=== PATIENT | male | born 1950 | race Caucasian/White ===

== ENCOUNTER 2016-07-05 11:15 | Emergency (ER) | payer OTHER ==
[~2016-07-05] VITALS: Ht 167.6 cm; Wt 117.1 kg
[2016-07-05 11:47] VITALS: BP 99/55; PULSE 81; RESP 16; TEMP 98; O2SAT 96
[2016-07-05] MEDS ORDERED: LISI-519 PO (11:54)
[2016-07-05] MEDS ORDERED: ALLO100T PO (11:54)
[2016-07-05] MEDS ORDERED: GLIP5TAB8 PO (11:54)
[2016-07-05] MEDS ORDERED: METF1000 PO (11:54)
[2016-07-05] MEDS ORDERED: TETANUS/DIPHTHERIA TOXOID ADULT 0.5 ML VIAL IM ONE (13:00)
[2016-07-05] MEDS ORDERED: KETOROLAC TROMETHAMINE 60 MG/2 ML (IM) VIAL IM ONE (13:00)
[2016-07-05] MEDS ORDERED: ORPHENADRINE INJ 60 MG/2 ML AMP IM ONE (13:00)
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
[2016-07-05] MEDS ORDERED: ROBA750T PO (14:13)
[2016-07-05] MEDS ORDERED: IBUP-232 PO (14:13)
[2016-07-05 14:25] VITALS: RESP 18
== END 2016-07-05 14:31 | disposition home or self-care (01) ==
LOC: PHEFT 11:15
DX: S80.11XA Contusion of right lower leg, initial encounter (principal); S29.011A Strain of muscle and tendon of front wall of thorax, initial encounter; S83.8X2A Sprain of other specified parts of left knee, initial encounter; V43.52XA Car driver injured in collision with other type car in traffic accident, initial encounter; Y93.89 Activity, other specified; Y92.410 Unspecified street and highway as the place of occurrence of the external cause
CPT/HCPCS: 71010; 73560; 73590; 90471; 90714; 96372; 99284; J1885; J2360

== ENCOUNTER 2017-11-15 07:48 | Day surgery (SDC) | payer MEDICARE ==
[~2017-11-15 07:48] MED LIST: ALLO100T PO; GLIP5TAB8 PO; IBUP-232 PO; LISI-519 PO; METF1000 PO; ROBA750T PO
[2017-11-15] MEDS ORDERED: HYDR-3288 PO (08:15)
[2017-11-15] MEDS ORDERED: ATOR20TA15 PO (08:15)
[2017-11-15] MEDS ORDERED: ALLO300T2 PO (08:15)
[2017-11-15] MEDS ORDERED: GLIP10TA6 PO (08:15)
--- NOTE | 2017-11-15 10:40 | CF ---
cc: Barbara Gibson MD DATE: 11/15/2017 INDICATIONS FOR PROCEDURE: The patient is having a loud murmur was a technically difficult transthoracic echocardiogram. PROCEDURE: Transesophageal echocardiogram. PROCEDURE: After obtaining informed consent, the patient was stable to the recovery area. Anesthesia Department took care of sedation. Transesophageal echocardiogram was performed and no complications. FINDINGS: Aortic valve well visualized, significantly calcified. Could not get pressure gradients across it. The half planimetry showed about 1.3 cm2 for valve area. No shunts, no vegetations. IMPRESSION: 1. Moderate aortic insufficiency. 2. Mild mitral insufficiency. 3. No shunts, no vegetations and no effusion. Barbara Gibson MD DANAY/SB , 10:20 AM , 10:39 AM
--- NOTE | 2017-11-15 15:27 | EKG ---
Date Performed: 11/15/2017 Time Performed: 08:32:34 PTAGE: 67 years EKG: Sinus rhythm with 1st degree A-V block. Lead(s) unsuitable for analysis: V1 Left anterior fascicular block Left v entricular hypertrophy Lateral ST-T changes are probably due to ventricular hypertrophy Abnormal ECG NO PREVIOUS TRACING DOCTOR: Shanti Crawley Interpretating Date/Time 11/15/2017 15:25:48
== END 2017-11-15 11:35 | disposition home or self-care (01) ==
LOC: HSDC 07:48 → HDIC 07:49 → HSDC 11:35
PROVIDERS: ATTEND Internal Medicine Cardiovascular Disease
DX: R01.1 Cardiac murmur, unspecified (principal); I35.1 Nonrheumatic aortic (valve) insufficiency; I34.0 Nonrheumatic mitral (valve) insufficiency; I25.119 Atherosclerotic heart disease of native coronary artery with unspecified angina pectoris; E10.9 Type 1 diabetes mellitus without complications; I10 Essential (primary) hypertension; E66.9 Obesity, unspecified
CPT/HCPCS: 93005; 93312; 93320; 93325

== ENCOUNTER 2017-12-05 09:45 | Day surgery (SDC) | payer MEDICARE ==
[~2017-12-05] VITALS: Ht 165.1 cm; Wt 116.9 kg
[~2017-12-05 09:45] MED LIST changes: -ALLO100T PO; +ALLO300T2 PO; +ATOR20TA15 PO; +GLIP10TA6 PO; -GLIP5TAB8 PO; +HYDR-3288 PO; -IBUP-232 PO; -ROBA750T PO
[2017-12-05] MEDS ORDERED: IOHEXOL 350 MG/ML 100 ML BTL (for Cath Lab) OTHER ONE (09:46)
[2017-12-05 10:29] VITALS: BP 166/86; PULSE 84; RESP 18; TEMP 97.6; O2SAT 97
[2017-12-05 10:45] LABS: AUTOMATED NEUTROPHIL # 3.4 TH/MM3 (1.8-7.7); BASOPHIL # 0.1 TH/MM3 (0-0.2); EOSINOPHIL # 0.2 TH/MM3 (0-0.4); EOSINOPHIL % 3.9 % (0.0-4.0); HEMATOCRIT 39.7 % (39.0-51.0); HEMOGLOBIN 13.2 GM/DL (13.0-17.0); LYMPH % 31.6 % (9.0-44.0); LYMPHOCYTE # 1.9 TH/MM3 (1.0-4.8); MEAN CELL VOLUME 84.1 FL (80.0-100.0); MEAN CORPUSCULAR HEMOGLOBIN 27.9 PG (27.0-34.0); MEAN CORPUSCULAR HGB CONC 33.2 % (32.0-36.0); MEAN PLATELET VOLUME 8.4 FL (7.0-11.0); MONO % 8.1 % (0.0-8.0); MONOCYTE # 0.5 TH/MM3 (0-0.9); NEUT % 55.4 % (16.0-70.0); PLATELET COUNT 225 TH/MM3 (150-450); RED BLOOD COUNT 4.73 MIL/MM3 (4.50-5.90); RED CELL DISTRIBUTION WIDTH 15.1 % (11.6-17.2); WHITE BLOOD COUNT 6.1 TH/MM3 (4.0-11.0)
[2017-12-05 10:57] LABS: PROTHROMBIN TIME - PATIENT 10.5 SEC (9.8-11.6)
[2017-12-05] MEDS ORDERED: NS 1000P @30 MLS/HR (KVO) IV SCH (11:00)
[2017-12-05 11:13] LABS: BICARBONATE 24.2 MEQ/L (21.0-32.0); CALCIUM 8.9 MG/DL (8.5-10.1); CREATININE 1.09 MG/DL (0.60-1.30)
[2017-12-05] MEDS ORDERED: HEPARIN-NS/PF INJ 500 ML ONE (12:07)
[2017-12-05] MEDS ORDERED: HEPARIN SODIUM - IV 10,000 UNITS/10 ML VIAL ONE (12:07)
[2017-12-05] MEDS ORDERED: MIDAZOLAM HCL 2 MG/2 ML VIAL ONE (12:07)
[2017-12-05] MEDS ORDERED: SODIUM CHLOR 0.9% 1000 ML INJ 400 ML IV ONE (13:15)
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
--- NOTE | 2017-12-05 13:26 | CATHPROC ---
[employer] HIS Report Study Information Study Number Admission Scheduled Start Study Start [id number] Dec 05 2017 9:45AM 12/05/2017 Dec 05 2017 11:36AM [place] [facility] Cardiac Catheterization Admit Source Facility Department Other [facility] - Press Washer Physician and Clinical Staff Initial Barbara Vargas Deputy Probation Officer Joy Dasilva RN Recorder Rajni Brink,RT(R) (BS) Scrub Debo Dimas,RT(R) TECH2 Procedures Performed Procedure Location (Site) Vessel Name Coronary Angiograms LCA Left Coronary Coronary Angiograms RCA Right Coronary LV Gram-hand inj. LV LV Ventricle Wire insertion Fem Art (right) Femoral Art Equipment Time Secondary Teacher Description Size Mfg Part Number Used/Scraped [id number] 11:51 MONCADA CHANDRA SWAN KADEN CATHETER FR 7 Used *[id number] TRANSDUCER, TRUWAVE [id number] 11:51 MONCADA CHANDRA * Used W/STOCKCOCK *[id number] TRANSDUCER, TRUWAVE [id number] 11:51 MONCADA CHANDRA * Used W/STOCKCOCK *[id number] WIRE, ZIP STRAIGHT GLIDE [id number] 12:40 [employer] 150CM Used 150CM *[id number] 12:53 [employer] MEDICAL VASCADE, FR6 CLOSURE SYSTEM FR 6\7 Used *[id number] [id number] *[id number] 534-620T *[id number] 534-621T *[id number] 11:51 [employer]ATHER [employer] SAVE BLANKET,WARM AIR CCL * Used *[id number] [id number] 11:51 [employer]ATHER [employer] SAVE PACK, CCL CUSTOM * Used *[id number] 11:51 [employer] PACER PEN, SKIN DUAL W/ RULER * Used *[id number] 11:51 [employer] MEDICAL SHEATH, FR6.5 PRELUDE 11CM FR 6.5 038ACT Used *[id number] [id number] 11:51 [employer] MED[employer] WIRE, 3MMJ .035 180CM 180CM Used *6743611 [id number] 12:47 [employer] MEDICAL WIRE, EXCHANGE 260CM 3MMJ 260CM Used *4687090 [id number] 12:44 [employer] MEDICAL WIRE, STRAIGHT TIP .035 * Used *6810985 [id number] 11:51 [employer] MANIFOLD, 2 PORT * Used *[id number] 11:51 [employer]OLD, 4 PORT * Used *[id number] 11:51 [employer] OMNIPAQUE, 350 MG, 150ML 150ML [id number] Used [id number] 11:51 [employer] MEDICAL SHEATH, FR7 TERUMO (10CM) FR 7 Used *[id number] 12:18 [employer] PIGTAIL DUAL LUMEN CATHETER FR 6 5527 *[id number] Used Equipment Model, Serial, Lot Number and Expiration Data Description Model Number Serial Number Lot Number Expiration Date WIRE, ZIP STRAIGHT GLIDE 150CM [id number] 10-10-2020 History: Allergies Allergy Reaction No Known Allergies History: Risk Factors Family History of Hypertension Dyslipidemia Previous [place] Previous Heart Failure Premature CAD Yes No No No No Prior Valve Prior PCI Prior CABG Surgery No No No Cerebrovascular Peripheral Artery Chronic Lung On Dialysis Diabetes Diabetes Therapy Disease Disease Disease No No No No Yes Oral History: Stress Tests Stress or Imaging Studies Performed Yes Standard Exercise Stress Test No Stress Echo No Stress Test SPECT Stress Test SPECT Result Yes Positive Stress Test CMR No Cardiac CTA Coronary Calcium Score No No History: Other Current Smoker No Labs Hgb (g/dl) Hct (%) WBC (l/cumm) Platelets (thousands) 11.60-17.00 35.00-51.00 4.00-11.00 150.00-450.00 13.0 39 6.1 225 Glucose (mg/dl) BUN (mg/dl) Creatinine (mg/dl) BUN:Creatinine (1:x) 74.00-106.00 7.00-18.00 0.50-1.30 10.00-20.00 118 21 1.0 21 Na (meq/l) K (meq/l) 136.00-145.00 3.50-5.10 140 4.3 INR (PTT:PT) 0.90-1.10 1 CPK-MB (ng/ML) 0.50-3.60 Not Drawn Medication Medication Total Dose (Bolus/Oral) Medication Total Dosage/Unit 1% XYLOCAINE 20 mL VERSED 2 mg Medications (Bolus/Oral) Medication Time Given Dosage/Unit Administered By Reason VERSED 12/05/2017 12:13:25 PM 1 mg Joy Dasilva 1 mg VERSED given in lab by Joy Dasilva, RN in Left Antecubital via Peripheral IV. 1% XYLOCAINE 12/05/2017 12:23:01 PM 20 mL Barbara Gibson 20 mL 1% XYLOCAINE given in lab by Barbara Gibson in Right Groin via Subcutaneous. VERSED 12/05/2017 12:23:17 PM 1 mg Joy Dasilva 1 mg VERSED given in lab by Joy Dasilva RN in Left Antecubital via Peripheral IV. Medication (Drip) Medication Time Given Dosage/Unit Concentration/Unit Diluent (ml) Solution IV Solutions 12/05/2017 12:04:30 PM 0 mL (IV) 500 NaCl .9 IV Solutions given in lab by Joy Dasilva RN in Left Antecubital via Peripheral IV. Pump/Drip Fl ow = 30 ml/hr using NaCl .9. Initial Case Assessment Cardiovascular HR Rhythm NIBP Chest Pain 73 reg 150/81 0 Edema Present Skin color Skin None Normal Warm Dry Circulatory - Right Pulses Dorsalis Pedis Femoral 2 1 Scale (0,1,2,3,4,d) Circulatory - Left Pulses Dorsalis Pedis Femoral 2 1 Scale (0,1,2,3,4,d) Circulatory - Lower Extremities Color Lower Right Color Lower Left Normal Normal Neurological State Oriented to time-place- Alert Moves all extremities person Respiration - General Respiration Rate SpO2 (%) (B/min) 13 97 Chronological Log Time Study Chronological Log 12:02:51 Patient arrived via Bed. 12:02:52 Patient Name, D.O.B, / Armband Verified By R.N. 12:02:53 Consent signed by the physician and the patient and verified by the Press Washer staff. Vitals capture started with the following parameters, Patient=Adult, Interval=5 min, Initial Pr hnlbdm=198 mmHg, 12:02:59 Deflation Rate=5 mmHg, Cuff placed on Right Ankle 12:04:10 Pre-op and post- op instructions given; patient acknowledges understanding of instructions. 12:04:11 Verbal Stimulation=2 Physical Stimulation=2 Airway=2 Respiration=2 TOTAL=8. (0=absent, 1=li mited, 2=present) 12:04:12 Presedation assessment performed by Press Washer RN. 12:04:23 Patient has been NPO for More than 6Hrs. 12:04:24 Skin Breakdown none per pt 12:04:27 Patient Warmer Placed on the Table. 12:04:29 Ava Prominences Protected 12:04:30 A # 20 IV was noted in the Antecubital (left). Grade = 0 IV Solutions given in lab by Joy Dasilva, GONZÁLEZ in Left Antecubital via Peripheral IV. Pump/D rip Flow = 30 ml/hr 12:04:30 using NaCl .9. 12:04:33 History and physical on the chart or being dictated. Assessment: Initial Case, HR=73 BPM, Rhythm=reg, GWNZ=996/81 mmhg, Chest Pain=0, Edema=None, Co armando=Normal, Skin = Warm, Dry Right Pulses: Bal Ped=2, Femoral=1 Left Pulses: Bal Ped=2, Femoral=1 12:04:34 Lower Right Extremities: Color=Normal Lower Left Extremities: Color=Normal Neurological: State=Alert, Ox3, VASQUEZ Respiration: Resp=13 B/min, SpO2=97 % 12:04:58 HR=89 bpm, XXYN=883/81 mmhg, SpO2=97.0 %, Resp=10 B/min, Pain=0, Zion=10, Han=2 12:07:05 Reference ECG taken 12:08:41 HR=82 bpm, CUNC=912/80 mmhg, SpO2=97.0 %, Resp=21 B/min, Pain=0, Zion=10, Han=2 12:10:09 MD arrived. 12:13:25 1 mg VERSED given in lab by Joy Dasilva, RN in Left Antecubital via Peripheral IV. 12:13:42 HR=87 bpm, KOMP=164/75 mmhg, SpO2=97.0 %, Resp=13 B/min, Pain=0, Zion=10, Han=2 12:16:55 Bilateral groins prepped with 2% chlorhexidine, and draped after a 3 minute waiting time. 12:18:41 HR=79 bpm, UJKV=113/80 mmhg, SpO2=95.0 %, Resp=9 B/min, Pain=0, Zion=10, Han=2 Time Out. Correct patient, correct procedure, correct physician, labs, allergies, and equipment verified with slab depiler operator 12:22:08 team present. Fire risk assesment completed (see hard stop sheet for coding). Time Out Conc urred by MD and individual staff in procedure. 12:22:20 Case Start 12:23:01 20 mL 1% XYLOCAINE given in lab by Barbara Gibson in Right Groin via Subcutaneous. 12:23:10 Pressure channel 1 zeroed. 12:23:17 1 mg VERSED given in lab by Joy Dasilva RN in Left Antecubital via Peripheral IV. 12:23:42 HR=77 bpm, YSZU=964/77 mmhg, SpO2=95.0 %, Resp=15 B/min, Pain=0, Zion=10, Han=2 12:24:16 Pressure channel 2 zero failed. 12:24:34 Pressure channel 1 zeroed. 12:24:46 Pressure channel 2 zeroed. 12:24:56 Access site was Right Femoral Artery. 12:25:03 A SHEATH, FR6.5 PRELUDE 11CM FR 6.5 was advanced into the Fem Art (right) using the Percuta neous technique. 12:25:18 Access site was Right Femoral Vein. 12:25:23 A SHEATH, FR7 TERUMO (10CM) FR 7 was advanced into the Fem Vein (right) using the Percutane ous technique. 12:25:50 A SWAN KADEN CATHETER FR 7 was inserted via Fem Vein (right) Recorded Pressure: PCW, HR=77, Condition=Condition 1 12:27:53 (Pulmonary Capillary Wedge) PCW 18/13/10 Recorded Pressure: MPA, HR=67, Condition=Condition 1 12:28:07 (Main Pulmonary Artery) MPA 12:28:26 Saturation: Site=FA (Femoral Artery) , O2=93.1 %, Hgb=13 gm/dl, Condition=Condition 1. Used in calculation. 12:28:41 HR=72 bpm, OWAZ=957/72 mmhg, SpO2=93.0 %, Resp=26 B/min, Pain=0, Zion=10, Han=2 12:29:07 Saturation: Site=PA (Pulmonary Artery) , O2=67.4 %, Hgb=13 gm/dl, Condition=Condition 1. Us ed in calculation. Thermo CO: CO=5.2 l/m, HR=76 bpm, Condition=Condition 1. Used in calculation. 12:30:35 Equipment: Description and Size=SWAN KADEN CATHETER FR 7, Type=Bath Probe, CC=0.579 Injectant: Temp=19.0 - 22.0 Celsius, Volume=10.0 ml Thermo CO: CO=4.9 l/m, HR=66 bpm, Condition=Condition 1. Used in calculation. 12:31:31 Equipment: Description and Size=SWAN KADEN CATHETER FR 7, Type=Bath Probe, CC=0.579 Injectant: Temp=19.0 - 22.0 Celsius, Volume=10.0 ml Thermo CO: CO=5.3 l/m, HR=67 bpm, Condition=Condition 1. Used in calculation. 12:32:18 Equipment: Description and Size=SWAN KADEN CATHETER FR 7, Type=Bath Probe, CC=0.579 Injectant: Temp=19.0 - 22.0 Celsius, Volume=10.0 ml Recorded Pressure: RV, IN=105, Condition=Condition 1 12:32:53 (Right Ventricle) RV 37/14/18 Recorded Pressure: RA, HR=58, Condition=Condition 1 12:33:22 (Right Atrium) RA 16/16/11 12:33:32 Tad Kaden Catheter Removed 12:33:43 HR=58 bpm, BBYD=276/67 mmhg, SpO2=94.0 %, Resp=11 B/min, Pain=0, Zion=10, Han=2 A JL 4.0 INFINITI CATHETER FR 6 was advanced over a wire. OMNIPAQUE, 350 MG, 150ML 150ML was us ed for 12:34:27 injections. 12:35:17 The LCA was injected and visualized at various angles. OMNIPAQUE, 350 MG, 150ML 150ML used . Recorded Pressure: Ao, HR=65, Condition=Condition 1 12:35:32 (Aorta) Ao 111/57/77 12:35:43 Catheter was removed A JR 4.0 INFINITI CATHETER FR 6 was advanced over a wire. OMNIPAQUE, 350 MG, 150ML 150ML was us ed for 12:35:44 injections. 12:38:28 The RCA was injected and visualized at various angles. OMNIPAQUE, 350 MG, 150ML 150ML used . 12:38:40 HR=77 bpm, GSMA=422/71 mmhg, SpO2=93.0 %, Resp=24 B/min, Pain=0, Zion=10, Han=2 12:39:44 Catheter was removed A AL 1 INFINITI CATHETER FR 5 was advanced over a wire. OMNIPAQUE, 350 MG, 150ML 150ML was used for 12:39:49 injections. 12:40:20 A WIRE, ZIP STRAIGHT GLIDE 150CM 150CM was inserted via Fem Art (right). 12:43:41 HR=76 bpm, WXIK=552/64 mmhg, SpO2=93.0 %, Resp=14 B/min, Pain=0, Zion=10, Han=2 12:44:17 Wire removed 12:44:19 A WIRE, STRAIGHT TIP .035 * was inserted via Fem Art (right). 12:45:26 Wire removed 12:47:03 A WIRE, EXCHANGE 260CM 3MMJ 260CM was inserted via Fem Art (right). After removing the current catheter a PIGTAIL DUAL LUMEN CATHETER FR 6 was advanced over a WIRE , EXCHANGE 12:47:29 260CM 3MMJ 260CM. 12:48:42 HR=71 bpm, AKGY=427/63 mmhg, SpO2=95.0 %, Resp=24 B/min, Pain=0, Zion=10, Han=2 12:49:16 Wire removed Recorded Pressure: LV, HR=79, Condition=Condition 1 12:49:51 (Left Ventricle) LV 185/8/31 Recorded Pressure: Ao, LV, HR=77, Condition=Condition 1 12:50:24 (Aorta) Ao 105/58/79, (Left Ventricle) LV 176/11/36 12:50:58 The LV was manually injected with 8 cc's and visualized. OMNIPAQUE, 350 MG, 150ML 150ML use d. 12:51:11 Catheter was removed 12:51:26 An injection in the Fem Art (right) was made through the SHEATH, FR6.5 PRELUDE 11CM FR 6.5. 12:51:56 VASCADE, FR6 CLOSURE SYSTEM FR 6\7 placement in the Fem Art (right) 12:53:55 Case End (Physician broke scrub) 12:54:13 HR=79 bpm, WTCF=956/72 mmhg, SpO2=94.0 %, Resp=14 B/min, Pain=0, Zion=10, Han=2 12:58:44 HR=75 bpm, ZWFZ=003/70 mmhg, SpO2=95.0 %, Resp=15 B/min, Pain=0, Zion=10, Han=2 13:01:24 Venous sheath removed; pressure applied to access site. 13:03:43 HR=71 bpm, MQNJ=160/75 mmhg, SpO2=95.0 %, Resp=17 B/min, Pain=0, Zion=10, Han=2 13:08:46 HR=77 bpm, QRXF=761/71 mmhg, SpO2=94.0 %, Resp=22 B/min, Pain=0, Zion=10, Han=2 13:13:47 HR=77 bpm, AMHO=823/70 mmhg, SpO2=95.0 %, Resp=12 B/min, Pain=0, Zion=10, Han=2 13:16:53 Catheter(s) removed without difficulty 13:16:56 Sterile dressing applied to site 13:17:04 No case complications noted. 13:17:10 Bedside Report will be given. 13:17:14 A Left and Right Heart Cath was performed. 13:18:36 XEKK=441/69 mmhg, Pain=0, Zion=10, Han=2 13:18:43 Vitals capture stopped. 13:20:16 [facility] - Contrast Media Used In Study Contrast Total Opened (mL) Total Used (mL) Total Wasted (mL) Omnipaque 60 60 0 End Study - Maximum Contrast Load Max Contrast Load (mL) 584.5 End Study - Radiation Exposure Fluoro Time (minutes) 9.7 End Study - Sheaths Sheaths Pulled By Sheath Hold Time (min) Debo Dimas 15 End Study - Patient Disposition Complications Transferred To No Press Washer Holding
--- NOTE | 2017-12-05 15:26 | EKG ---
Date Performed: 12/05/2017 Time Performed: 10:31:46 PTAGE: 67 years EKG: Sinus rhythm with 1st degree A-V block. Left anterior fascicular block Left ventricular hypertrophy Lateral ST-T changes are probably due to ventricular hypertrophy Abnormal ECG Compared to prior electrocardiogram, I see no definite changes although the prior EKG has marked artifact. PREVIOUS TRACING : 11/15/2017 08.32 DOCTOR: Nicholas Pablo Interpretating Date/Time 12/05/2017 15:26:12
== END 2017-12-05 17:53 | disposition home or self-care (01) ==
LOC: HDOC 09:45 → HDIC 09:46 → HDOC 17:53
PROVIDERS: ATTEND Internal Medicine Cardiovascular Disease
DX: I35.0 Nonrheumatic aortic (valve) stenosis (principal); R01.1 Cardiac murmur, unspecified; I10 Essential (primary) hypertension; E10.9 Type 1 diabetes mellitus without complications; E66.9 Obesity, unspecified; Z79.84 Long term (current) use of oral hypoglycemic drugs; Z68.41 Body mass index [BMI] 40.0-44.9, adult
CPT/HCPCS: 80048; 82810; 85025; 85610; 85730; 93005; 93460; 99152; 99153; C1760; C1769; C1893; G0269; J1644; J2250; J7030; Q9967